=== PATIENT | male | born 1965 | race Caucasian/White ===

== ENCOUNTER 2022-04-14 20:40 | Emergency (ER) | payer BC ==
[~2022-04-14] VITALS: Ht 177.8 cm; Wt 68.9 kg
--- NOTE | 2022-04-14 22:10 | NUR ---
at bedside for MSE.
--- NOTE | 2022-04-14 22:30 | NUR ---
Xray at bedside.
[2022-04-14 22:33] LABS: MEAN CORPUSCULAR HEMOGLOBIN 30.6 uug (23.8-33.4); MEAN CORPUSCULAR VOLUME 86.9 fL (73.0-96.2); PLATELET COUNT (AUTO) 240 K/uL (152-348)
[2022-04-14 22:59] LABS: ALANINE AMINOTRANSFERASE 26 U/L (16-63); ALKALINE PHOSPHATASE 77 U/L (50-136); ASPARTATE AMINOTRANSFERASE 14 U/L (15-37); BILIRUBIN,DIRECT 0.2 mg/dL (0.0-0.2); BILIRUBIN,TOTAL 0.7 mg/dL (0.2-1.0); CARBON DIOXIDE 33 mmol/L (21-32); CHLORIDE 104 mmol/L (98-107); GLUCOSE 78 mg/dL (74-106); POTASSIUM 3.7 mmol/L (3.5-5.1); TOTAL PROTEIN, SERUM 6.7 g/dL (6.4-8.2); UREA NITROGEN, BLOOD 17 mg/dL (7-18)
--- NOTE | 2022-04-15 01:32 | NUR ---
Patient discharged to home in stable condition. Written and verbal after care instructions given. Patient verbalizes understanding of instructions. Stressed follow up or return to ER for worsening s/s. Patient out of ER with steady gait, no acute signs of distress, VSS, all belongings taken, provided with copies of lab and xray results.
[2022-04-15 01:33] VITALS: BP 120/90
== END 2022-04-15 01:33 | disposition home or self-care (01) ==
LOC: ER 21:29
DX: R53.1 Weakness (principal); R06.02 Shortness of breath; J98.11 Atelectasis; Z20.822 Contact with and (suspected) exposure to COVID-19; Z86.16 Personal history of COVID-19
CPT/HCPCS: 36415; 71045; 84484; 85025; 93005; A4663